=== PATIENT | male | born 1990 | race Hispanic/Latino ===

== ENCOUNTER 2019-07-02 08:17 | Emergency (ER) | payer MEDICAID, OTHER ==
[2019-07-02] MEDS ORDERED: KETOROLAC TROMETHAMINE 60 MG/2 ML VIAL ONE ×2 (08:51→09:18)
[2019-07-02] MEDS ORDERED: TETANUS/DIPHTHERIA TOXOID [ADULT] 0.5 ML VIAL IM ONE ×2 (08:51→09:18)
== END 2019-07-02 09:36 | disposition home or self-care (01) ==
LOC: EDH 08:17
DX: S91.331A Puncture wound without foreign body, right foot, initial encounter (principal); W45.0XXA Nail entering through skin, initial encounter; Y93.89 Activity, other specified; Y92.89 Other specified places as the place of occurrence of the external cause; Y99.8 Other external cause status
CPT/HCPCS: 90471; 90714; 96372; 99284; J1885

== ENCOUNTER 2021-12-22 22:07 | Emergency (ER) | payer OTHER | END 2021-12-22 23:06 | disposition left against medical advice (07) | LOC: EDH 22:07 | DX: R10.9 Unspecified abdominal pain (principal); Z53.21 Procedure and treatment not carried out due to patient leaving prior to being seen by health care provider ==